=== PATIENT | female | born 1995 | race Caucasian/White ===

== ENCOUNTER → 2019-01-26 | Outpatient (CLI) | payer OTHER, SELFPAY ==
[2019-01-26 16:40] LABS: Chlamydia Trachomatis by PCR Negative (Negative); Neisserai gonorrhoeae by PCR Negative (Negative); Probe Check PASS; Sample Adequacy Control PASS; Specimen Processing Control PASS
[2019-02-01 17:08] LABS: HPV Reflexed? NOT INDICATED
== END | disposition home or self-care (01) ==
LOC: LABSPEC 13:53
PROVIDERS: Referring Provider Obstetrics & Gynecology; Visit Provider Obstetrics & Gynecology
DX: Z12.4 Encounter for screening for malignant neoplasm of cervix (principal); Z11.3 Encounter for screening for infections with a predominantly sexual mode of transmission
CPT/HCPCS: 87491; 87591; 88175; G0145

== ENCOUNTER → 2019-05-16 | Outpatient (CLI) | payer OTHER, SELFPAY ==
[2019-05-16 12:23] LABS: Absolute Lymphocyte Count 1.22 X10^3/uL (0.83-4.51); Absolute Neutrophil Count 6.3 X10^3/uL (2.0-7.7); Basophil# 0.04 X10^3/uL; Basophil% 0.5 % (0-1); Eosinophil# 0.06 X10^3/uL; Eosinophils% 0.7 % (0-5); Hematocrit 37.8 % (37-47); Hemoglobin 12.8 g/dL (12.0-15.0); Lymphocyte # 1.22 X10^3/ul (4.0); Mean Corp Hgb Conc 33.9 g/dL (32-36); Mean Corpuscular Hgb 29.9 pg (27.0-32.0); Mean Corpuscular Volume 88.3 fL (81-99); Mean Platelet Vol. 9.1 fl (6.2-12.0); Monocyte# 0.42 X10^3/uL; Monocyte% 5.2 % (0-10); NRBC Flagged by Analyzer 0 % (0-5); Neutrophil # 6.34 X10^3/uL (2.7-7.7); Platelet Count 229 K/mm3 (150-450); RBC Distribution Width CV 12.5 % (11.6-14.6); RBC Distribution Width SD 40.6 fl (35.1-43.9); Red Blood Count 4.28 M/mm3 (4.2-5.4); White Blood Count 8.1 K/mm3 (4.4-11.0)
[2019-05-16 12:33] LABS: Color, Urine Straw (Yellow); Glucose, Dipstick Normal (Normal); Ketone-Dipstick Negative (Negative); Leukocyte Esterase-Dipstick Negative /ul (Negative); Nitrite-Dipstick Negative (Negative); Occult Blood-Urine Negative /ul (Negative); Protein-Dipstick Negative (Negative); Specific Gravity, Urine 1.005 (1.002-1.030); Urine Bilirubin Dipstick Negative (Negative); Urine Clarity Clear (Clear); Urine Urobilinogen Normal (Normal)
[2019-05-16 12:38] LABS: Thyroid Stim Hormone (TSH) 1.38 uIU/mL (0.358-3.74)
[2019-05-16 13:23] LABS: HIV - WCH Non-Reactive (Nonreactive); Hepatitis B Surface Antigen Non-Reactive (Nonreactive); Hepatitis C Antibody Non-Reactive (Nonreactive); Rubella IgG 149.4 IU/mL
[2019-05-17 13:36] LABS: Prenatal RPR NONREACTIVE (NONREACTIVE)
== END | disposition home or self-care (01) ==
LOC: WOBLAB 10:50
PROVIDERS: Visit Provider Obstetrics & Gynecology
DX: Z34.82 Encounter for supervision of other normal pregnancy, second trimester (principal)
CPT/HCPCS: 36415; 81002; 84443; 85025; 86703; 86762; 86803; 87340

== ENCOUNTER → 2019-07-18 | Outpatient (CLI) | payer OTHER, SELFPAY ==
[2019-07-18 11:09] LABS: Glucose Challenge Gest 1H 50g 131 mg/dL (70-140)
[2019-07-18 11:11] LABS: Mean Corp Hgb Conc 33.3 g/dL (32-36); Mean Corpuscular Hgb 29.7 pg (27.0-32.0); Mean Corpuscular Volume 89.1 fL (81-99); Mean Platelet Vol. 9.5 fl (6.2-12.0); Platelet Count 190 K/mm3 (150-450); RBC Distribution Width CV 12.3 % (11.6-14.6); RBC Distribution Width SD 40.3 fl (35.1-43.9); Red Blood Count 4.04 M/mm3 (4.2-5.4); White Blood Count 8.1 K/mm3 (4.4-11.0)
== END | disposition home or self-care (01) ==
LOC: WOBLAB 09:18
PROVIDERS: Visit Provider Obstetrics & Gynecology
DX: Z34.83 Encounter for supervision of other normal pregnancy, third trimester (principal)
CPT/HCPCS: 36415; 82950; 85027

== ENCOUNTER → 2019-09-06 11:34 | Outpatient (CLI) | payer OTHER, SELFPAY | PROVIDERS: Visit Provider Obstetrics & Gynecology | DX: Z36.85 Encounter for antenatal screening for Streptococcus B (principal) | CPT/HCPCS: 87077; 87081; 87186 ==

== ENCOUNTER 2019-10-03 02:55 | Inpatient (IN) | payer SELFPAY, OTHER ==
[2019-10-03 00:25] VITALS: BMI 37.8
[2019-10-03] MEDS: Lactated Ringers 1,000 ML 50 ML IV (03:15)
[2019-10-03 03:46] LABS: Absolute Lymphocyte Count 1.92 X10^3/uL (0.83-4.51); Basophil# 0.02 X10^3/uL; Basophil% 0.2 % (0-1); Eosinophil# 0.05 X10^3/uL; Eosinophils% 0.4 % (0-5); Hematocrit 35.7 % (37-47); Hemoglobin 12.1 g/dL (12.0-15.0); Lymphocyte # 1.92 X10^3/ul (4.0); Lymphocyte % 14.9 % (19-41); Mean Corp Hgb Conc 33.9 g/dL (32-36); Mean Corpuscular Hgb 29.3 pg (27.0-32.0); Mean Corpuscular Volume 86.4 fL (81-99); Mean Platelet Vol. 10.4 fl (6.2-12.0); Monocyte# 0.82 X10^3/uL; Monocyte% 6.3 % (0-10); NRBC Flagged by Analyzer 0 % (0-5); Neutrophil # 10.04 X10^3/uL (2.7-7.7); Neutrophil % 77.7 % (47-70); Platelet Count 211 K/mm3 (150-450); RBC Distribution Width CV 12.8 % (11.6-14.6); RBC Distribution Width SD 40.2 fl (35.1-43.9); Red Blood Count 4.13 M/mm3 (4.2-5.4); White Blood Count 12.9 K/mm3 (4.4-11.0)
--- NOTE | 2019-10-03 07:11 | PCM.HP.BLA ---
History and Physical Date of Admission: 10/02/19 [facility] [place] H[place]ORY AND PHYSICAL (10/03/2019) Name: IMELDA DUONG OB Physician: MARY Dukedom's Physician: UNDECIDED ...................................................................... : 1995 Age: 24 Address: [address] [place] [address] Phone: H) [phone] (O) [phone] Insurance Carrier: [facility] [id number] Emergency Contact: MATTEO DUONG [phone] ...................................................................... Imelda is a 24yo at 40w3d gestation by L=15w2d US admitted overnight for c/o contractions since 1999; has been unremarkable; she is GBS positive. She declines an epidural at this time, preferring to use nitrous oxide to manage her contractions; spouse is bedside and supportive; she is GBS positive; blood type is A positive. Final JAYME: 09/30/19 By Ultrasound: PARITY: (G-Total Pregnancies P-Fullterm,Premature,Induced AB,Spont AB, Ectopics, Multiple,Living) JAYME CONFIRMATION: By LMP: 01/26/19 Final JAYME: 09/30/19 BLOOD TYPE: AFP: 1 HR PG: GBS: Original Ordering Provider: Nila LEMUS Culture ORGANISM 1: Streptococcus agalactiae (B) Amount Growth Growth Streptococcus agalactiae (B): REACTION Ampicillin $ <=0.25 S Benzylpenicillin NF <=0.06 S Ceftriaxone $ <=0.12 S Clindamycin $$ <=0.25 S Inducable Clindamycin Resistan NEG Linezolid $$$$ <=2 S Vancomycin $ 0.5 S Reference Range: S= Susceptible, I= Intermediate, R= Resistant MICS are expressed in micrograms per mL (NF) indicates non-formulary drug at [facility]. Approval by Infectious Disease Specialist required before non-formulary drugs may be ordered and/or dispensed. Testing performed on Vitek 2 instrument Rublla titer (>10 immune)-- Hepatatis B amber AG-- CULTURES:-- OB PROBLEM LIST: Too late AFP. Declines CF. Enc office Childbirth Class. (Reluctant.) ALLERGIES: No Known Drug Allergies MEDICATIONS: + DHA 28 mg iron-975 mcg-200 mg oral pack daily SOCIAL HISTORY: Smoking - Never Alcohol Use - RARELY not while Diet - balanced Diet, caffeine < 2 drinks per day and Water intake 3-4 large bottles daily. Lifestyle - Exercise - Biking w [employer] bike, Enc to walk 20 min. 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 Place of - [place] Spouse-Sig Other Name - Matteo Spouse-Sig Other Occupation - office correspondent Spouse-Sig Other Phone No - [phone] PRIOR DELIVERY HISTORY DEL DATE GEST LAB WT LB WT OZ TYPE ANES LABOR TX ANTEPARTUM FLOW CHART VISIT GE RTC FU F F LA U U DATE WK MD WKS HT PN HR M SS BP ED WT LA GL D EF ST __ ____ ___ __ __ ___ __ __ __ ___ __ __ __ ___ __ 13 Sep ELB 1 38 V + + 120/84 sl 243 - - 2 75 -3 05 Sep ELB 1 37 V + + 110/90 sl 237 - - Aug ELB 1 37 V + + 112/78 1+ 237 - - Aug ELB 1 37 V + + 122/80 1+ 240 tr - cl TH -3 Aug ELB 1 36 V + + 100/70 sl 236 - - 31 Jul ELB 2 33 - + + 108/72 0 231 - - 17 Aug 16 ELB 2 31 - + + 122/58 sl 230 - - 02 Aug 14 ELB 2 29 - + + 130/78 sl 226 tr - 04 Jul 11 ELB 4 25 - + + 126/84 224 tr - 31 May 05 ELB 4 - - U+ + 90/70 0 211 - - 28 Apr 01 ELB 4 - - U+ O 142/82 204 ANTEPARTUM NOTE(S): Sep 28 2019: feeling well. Cervix check. Sep 20 2019: feeling well. Cervix check. Sep 12 2019: reviewed FM, SROM, and labor Sep 06 2019: mild edema, GBS today Aug 31 2019: feeling well. Aug 16 2019: feeling well. Aug 02 2019: doing well Jul 18 2019: GCT today Jun 20 2019: No complaints May 16 2019: feeling well. Apr 13 2019: DId NOT miscarry COMPREHENSIVE ANTEPARTUM NOTE(S): Sep 12 2019: Declines having Tdap or Influenza vaccines. Reviewed edema in , PIH sx, labor, SROM. LMT Sep 12 2019: Discussed GBS test positive and tx in labor. Reviewed BOTTLE FEEDING Does NOT want to nurse. Also discussed options for pain relief in labor. Planning no epidural at this time. EB Sep 11 2019: GBS sensitive to all abx tested. EB Sep 11 2019: H taken to OB. tkg Sep 09 2019: GBS positive EB Sep 06 2019: Imelda is here for visit. She has mild edema. She is otherwise doing well. Reviewed FM, SROM, and labor. GBS today and LARC consent signed. LMT Jul 19 2019: Hgb 12 g/dl. Glucola 131. WNL. EB Jun 20 2019: Reviewed NOB labs. Doing well. +FM. Glucola given with instructions. reviewed PTL. RTO in 4 wk for glucola CBC. EB May 16 2019: Imelda is here for NOB nurse visit with JAYME 09-30-19 planning a vag del at [facility], unsure of epidural, feeding method or ped care post disch. Leaning towards no epidural, formula feeding and looking for a family practice doctor. Advantages of a winter baby discussed and/or combining with bottle feeding. 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 He is a office correspondent. The pg was unplanned but they are fine with it. She has NKA to meds, food, latex or the environment. Her diet is balanced with minimal caffeine and 3-4 large bottles of water daily. She is a lifetime non smoker, rarely drinks alcohol and denies street drug use. She exercises daily on her battery operated bike or walks. She's active with her home. Enc to walk 20 min daily. Genetic Screening form completed noting no family issues. She is too late for AFP and declines CF testing. Warning signs in pg discussed as well as otc meds ok to take. lifting restriction of 20-25#, wearing seatbelt ALWAYS and low on abdomen. reaching the office after hours and the importance of protein in her diet. US done today and routine labs drawn. She's had chickenpox and they have no cats. She is aware of litter box issues. She has a copy of What to Expect and has been reading it. Office Childbirth and Classes discussed and enc. She sounds very reluctant about even Childbirth Class. Enc to call w any concerns. Visit took approx 50 min. Nico CAMACHO May 16 2019: A positive. RI. Hgb 12.8 g/dl. EB Apr 16 2019: Here for NOB exam. She had pap and cultures done prior visit at NOB then. She had called in to net front end developer and informed them that she had an SAB after bleeding on the day of her last NOB appt. (pap and cultures done then) SONO done today: VIABLE IUP and she did NOT miscarry. CRL consistent with dates by her prior stated LMP. She likely had some bleeding ONLY due to pap and cultures at last visit. Informed of this. Offered to have NOB labs done today, but die tripper schedule busy and will RTO for this as well as NOB nurse visit , 20 wk sono in 4 wks. EB Apr 13 2019: Imelda presents here today for Missed Menses appointment. 23 y.o. G 2 AB 1 P 0 non-smoker with no menses since Miscarriage on 01-26-19. UPT is positive today in our Office. History of normal pap screening in 01/2019. Admits she already has the Educational Materials and the What to expect book, and very thankful for same. Denies spotting/bleeding thus far in . Reports she has daily nausea and fatigue with some days worse then others. Currently taking an OTC Vitamin without problems. Medication and Allergy lists up-dated. SHIRA Feb 02 2019: Pap WNL. EB Jan 27 2019: GC and chlamydia NEG EB Jan 26 2019: Here for confirmation of Has had some spotting. EB Jan 26 2019: Imelda is being seen for missed menses. Pt is new to facility and this is first . UPT is faintly positive in office. LMP 12-24-18. Pt is about 4 weeks and 5 days. JAYME 09-30-19. Pt states she did have some spotting 01-24-19 that went away. Pt has never had a pap. Pap and cultures due today. Pt takes Momma bear vitamins and has no allergies. information gone over and reviewed with pt. AM REVIEW OF SYSTEMS: GENERAL - Denies fever, or chills SKIN - Denies rash, new skin lesions, or change in moles EYES - Denies blurred vision, or change in visual acuity EARS - Denies ear pain, or difficulty hearing NOSE - Denies nasal congestion, discharge, or bleeding MOUTH - Denies sore throat, or difficulty swallowing NECK - Denies pain or swelling RESPIRATORY - Denies shortness of breath, cough, wheezing CARDIOVASCULAR - Denies palpitations, chest pain, orthopnea, PND, peripheral edema, syncope or claudication GASTROINTESTINAL - Denies nausea, vomiting, diarrhea, constipation, Denies abdominal pain, melena and or bright red blood GENITOURINARY - Denies dysuria, frequency of urination, urgency, or hesitancy MUSCULOSKELETAL - Denies joint or muscle pain, or back pain NEUROLOGICAL - Denies localized numbness, weakness, or tingling PSYCHIATRIC - Denies depression, anxiety, substance abuse or suicide attempts ENDOCRINE - Denies heat or cold intolerance, weight loss or gain, increasing thirst HEMATO-IMMUNOLOGIC - Denies easy bruising, bleeding, oral ulcerations or recurrent infections GENETICS SCREENING: Age 35+ years: No Thalassemia: No Neural Tube Defect: No Down Syndrome: No NELDA-SACHS: No Sickle Cell Disease: No Hemophilia: No Musc. Dystrophy: No Cystic Fibrosis: No-declines screening Kenedy Chorea: No Mental Retardation: No Fragile X: No Other genetic: No Other defects: No SABs/still births: No Drugs since LMP: No INFECTION HISTORY: High risk AIDS: No High risk Hepatitis: No Exposed to TB: No Exposed to Herpes: No Rash/viral illness since LMP: No History of STD: No MENSTRUAL HISTORY: *Menses Amount/Duration: normal amount* PAST SUMMARY: PARITY: 1. Total Pregnancies............ 1 2. Full Term Pregnancies........ 0 3. Premature.................... 0 4. Abortions - Induced.......... 0 5. Abortions - Spontaneous...... 0 6. Ectopics..................... 0 7. Multiple Births.............. 0 8. Living Children.............. 0 Labs for : IMELDA DUONG since 01/03/2019 ORDER DATEIN DESCRIPTION VALUE UNITS RANGE A+ COMMENT CULTURE, GROUP B STREPTOCOCCUS 09/06/19 NOTE Original Ordering Provider: Nila Her ALLAN Culture ORGANISM 1: Streptococcus agalactiae (B) Amount Growth Growth Streptococcus agalactiae (B): REACTION Ampicillin $ <=0.25 S Benzylpenicillin NF <=0.06 S Ceftriaxone $ <=0.12 S Clindamycin $$ <=0.25 S Inducable Clindamycin Resistan NEG Linezolid $$$$ <=2 S Vancomycin $ 0.5 S Reference Range: S= Susceptible, I= Intermediate, R= Resistant MICS are expressed in micrograms per mL (NF) indicates non-formulary drug at [facility]. Approval by Infectious Disease Specialist required before non-formulary drugs may be ordered and/or dispensed. Testing performed on Karma Platformek 2 instrument Reviewed by NILA Reviewed by NILA Reviewed by NILA CBC-COMPLETE BLOOD CNT NO DIFF 07/18/19 NOTE Original Ordering Provider: Nila Her WBC 8.1 K/mm3 4.4-11.0 RBC 4.04 M/mm3 4.2-5.4 L HGB 12.0 g/dL 12.0-15.0 HCT 36.0 % 37-47 L MCV 89.1 fL 81-99 MCH 29.7 pg 27.0-32.0 MCHC 33.3 g/dL 32-36 RDW CV 12.3 % 11.6-14.6 RDW SD 40.3 fl 35.1-43.9 PLT 190 K/mm3 150-450 MPV 9.5 fl 6.2-12.0 Reviewed by NILA GLUCOSE CHALLENGE GEST 1H 50G 07/18/19 NOTE Original Ordering Provider: Nila Her GLU GEST 50G 1H 131 mg/dL 70-140 Reviewed by NILA RPR 05/16/19 NOTE Original Ordering Provider: Nila Her RPR NONREACTIVE NONREACTIVE Reviewed by NILA T AND S-NO CHARGE W/PNP 05/16/19 Reason for Type AND Screen/Red Cells: Surgery? N [facility]~[address] [place], [address]~ BLOOD TYPE GEL A POSITIVE N AB SCREEN GEL NEGATIVE N Reviewed by NILA HEPATITIS C ANTIBODY 05/16/19 NOTE Original Ordering Provider: Nila Her HEPATITIS C AB Non-Reactive Nonreactive Non Reactive: < 0.8 Equivocal: >/= 0.8 to < 1.0 Reactive: >/= 1.0 The CDC recommends that a reactive/equivocal HCV antibody result be followed up by the HCV Nucleic Acid Amplification test ([id number]) Reviewed by NILA HEPATITIS B SURFACE ANTIGEN 05/16/19 NOTE Original Ordering Provider: Nila Her HEPB SURFACE AG Non-Reactive Nonreactive Reviewed by NILA HIV - [facility] 05/16/19 NOTE Original Ordering Provider: Nila Her HIV - [facility] Non-Reactive Nonreactive Reviewed by NILA RUBELLA IGG 05/16/19 NOTE Original Ordering Provider: Nila Her RUBELLA IGG 149.4 IU/mL Antibody results Interpretation of Immune Status < 5 IU/ml Presumed Non-immune 5 - < 10 IU/ml Equivocal > or = 10 IU/ml Presumed Immune Reviewed by NILA URINALYSIS, ROUTINE (DIPSTICK) 05/16/19 NOTE Original Ordering Provider: Nila Her COLOR Straw Yellow CLARITY Clear Clear GLUCOSE, UR Normal mg/dl Normal BILIRUBIN URINE Negative mg/dL Negative KETONE UR Negative mg/dl Negative SP.GR. DIPSTX 1.005 1.002-1.030 PH UR 7.0 5.0 - 8.0 PROT DIPSTX Negative mg/dl Negative UROBILI Normal mg/dl Normal NITRITE UR Negative Negative OCCULT BLOOD-UR Negative /ul Negative LEUK ESTERASE Negative /ul Negative Reviewed by NILA THYROID STIM HORMONE (TSH) 05/16/19 NOTE Original Ordering Provider: Nila Her TSH 1.38 uIU/mL 0.358-3.74 Reviewed by NILA CBC W/DIFF, AUTOMATED 05/16/19 NOTE Original Ordering Provider: Nila Her WBC 8.1 K/mm3 4.4-11.0 RBC 4.28 M/mm3 4.2-5.4 HGB 12.8 g/dL 12.0-15.0 HCT 37.8 % 37-47 MCV 88.3 fL 81-99 MCH 29.9 pg 27.0-32.0 MCHC 33.9 g/dL 32-36 RDW CV 12.5 % 11.6-14.6 RDW SD 40.6 fl 35.1-43.9 PLT 229 K/mm3 150-450 MPV 9.1 fl 6.2-12.0 NEUT% 78.0 % 47-70 H LY% 15.0 % 19-41 L MONO% 5.2 % 0-10 EO% 0.7 % 0-5 BASO% 0.5 % 0-1 IM GRAN % 0.600 % 0.0-0.9 IG% - Immature Granulocytes (promyelocytes, myelocytes and metamyelocytes) > 1% indicates that a LEFT SHIFT is Present. ABSOLUTE NEUT 6.3 X10 3/uL 2.0-7.7 ABSOLUTE LYMPH 1.22 X10 3/uL 0.83-4.51 NRBC, FLAGGED 0 % 0-5 Reviewed by NILA PAP I-G W/RFX HRHPV 01/26/19 NOTE Original Ordering Provider: Nila Her DIAGN . NEGATIVE FOR INTRAEPITHELIAL LESION OR MALIGNANCY. THIS SPECIMEN WAS RESCREENED PART OF OUR MORTGAGE ANALYST PROGRAM. ADEQ . Satisfactory for evaluation. Endocervical and/or squamous metaplastic cells (endocervical component) are present. PERFORM . Kirsty Guiod, Handyperson (ASCP) QC REV . Yaa Max, Supervisory Handyperson (ASCP) SIGN . Ada Cantu, Supervisory Handyperson (ASCP) TEST METHOD . This liquid based ThinPrep(R) pap test was screened with the use of an image guided system. COMM . . PAPSMR . The Pap smear is a screening test designed to aid in the detection of premalignant and malignant conditions of the uterine cervix. It is not a diagnostic procedure and should not be used as the sole means of detecting cervical cancer. Both false-positive and false-negative reports do occur. HPV RFLX . The HPV DNA reflex criteria were not met with this specimen result therefore, no HPV testing was performed. Performed at: [address] [id number] Lining Cutter: Sylvia Cesar MD, Phone: [phone] Reviewed by NILA FREEMAN/SAULO [facility] BY PCR 01/26/19 NOTE Original Ordering Provider: Nila [facility] PCR Negative Negative NG BY PCR Negative Negative Reviewed by NILA PROVIDER SIGNATURE ( REQUIRED) PHYSICAL EXAMINATION General Appearence: 24 yo female in no acute distress Vital Signs: AF, VSS Heart: RRR without rubs or gallops Lungs: CTA x 2 Breasts: deferred Abdomen: gravid Pelvis: Cervix: 4/75/-2 at 0533 per RN Presentation: cephalic Fetus: Size: AGA Movement: present Heart tones: 135 baseline, moderate variability, with accels, occasional early decels UCs: Q 2-4 Impression: 24yo at 40w3d gestation by L=15w2d US Early labor A positive GBS positive Cat 1 FHTs Plan: Admitted for labor GBS prophylaxis Expectant management Anticipate vaginal delivery
--- NOTE | 2019-10-03 08:41 | PCM.PN.BLA ---
Progress Note This is a late entry for 10/03/2019 0824 S: Coping well with, breathing through contractions, using nitrous oxide to manage contractions; spouse bedside and supportive; OK w/opening BOW to augment labor O: AVSS FHTs: UCs: Cervix: 8/95/0 BBOW GBS prophylaxis dose # 2 complete Assessment: 24yo at 40w3d gestation by L=15w2d US Active labor A positive GBS positive Cat 2 FHTs Plan: Risks, benefits of AROM discussed with pt and spouse; request AROM for small amount clear fluid Favian Ontiveros CNM updated and enroute Expectant management Anticipate vaginal delivery
[2019-10-03] MEDS: Oxytocin 30 units/NS 500 ml 30 UNITS/500 ML IV.SOLN 334 UNITS IV (10:34)
--- NOTE | 2019-10-03 11:10 | PCM.OPRPT ---
Vaginal Delivery Amniotic Membrane Rupture Type: Artificial Amniotic Fluid Description: Clear Final JAYME: 09/30/19 Final JAYME Source: US <20 weeks Gestational age: 40 Weeks and 3 Days Date of Procedure: 10/03/19 Pre-Operative Diagnosis: Labor Post-Operative Diagnosis: S/P NVSD Surgery/ Procedure Performed: Spontaneous Vaginal Delivery Type of Anesthesia: Local with 1% lidocaine Description of Procedure: of a reece viable male . Head delivered OA, restituted to ANTONINO. Loose nuchal x1 retracted before delivery of shoulders. Shoulders delivered with mother in [place] and downward traction by CNM. OP and nares bulb suctioned after delivery. Meconium followed infant. to maternal abdomen with cry after gentle stimulation. Delayed cord clamping for 30 sec then cord clamped times two and cut by CNM. Male Apgars 8/9 Placenta delivered by spont expulsion, expression. normal appearing and intact with trailing membranes. 3V cord PP exam : second degree vaginal and perineal lacerations repaired under local lidocaine 1% with 3.[address] Her and CNM EBL 200 cc Pt and tolerated delivery well to recovery, stable condition Presentation: Vertex, ANTONINO Placental Delivery Description: Spontaneous Placenta Disposition: [facility] Cord Vessel Description: 3 Vessels Cord Entanglement: Around neck x 1, loose Estimated Blood Loss: 200 A gender: Male (1 minute): 8 (5 minute): 9 Episiotomy Description: None Laceration: Perineal Extension/lac, Vaginal Extension/lac, 2nd degree Medications given after delivery: IV Pitocin
--- NOTE | 2019-10-03 11:19 | DCINST_ITS ---
Discharge Diet: No Restrictions Discharge Activity: Return to Normal Activity, May not drive while taking narcotic pain medications., May Shower May resume sexual activity in: 4-6 weeks Additional Activity Instructions:: Nothing in the vagina for 4-6 weeks. You may return to work/school in 6 weeks. Call your doctor if your incision/area has: Continuous Slow Oozing, Sudden Increased Bleeding, Increased Pain/ Swelling, Increased Redness, Foul Smelling Discharge Call your doctor if you observe: Fever of 101 or Higher, Coldness, Increased Pain, Numbness or Tingling, Change in Color, Inability to urinate, Inability to have a bowel movement, Using more than one pad per hour, Shortness of breath, Dizziness, Fainting spells, Swelling in the ankles, Chest pain, Prolonged hiccoughing, Increased palpitations (irregular heartbeat), Calf discomfort, Uncontrolled pain Additional Instructions: If you experience any of the following, contact your healthcare provider. * Bleeding that soaks a pad every hour for 2 hours * Unrelieved incision or abdominal pain * Swelling, redness, discharge or bleeding from your incision or episiotomy site * Your incision begins to separate * Problems urinating (including inability to urinate or burning while urinating). * Visual changes * Severe headache * Flu-like symptoms * Pain or redness in one of both of your breasts * Pain, warmth, tenderness or swelling in your legs, especially the calf area * Frequent nausea and vomiting * Symptoms of depression or anxiety If you experience any of the following, call 911 or go to the nearest Emergency Room. * Chest pain * Problems breathing * Seizure activity * Partial or complete paralysis of a body part, slurred speech, weakness or drooping of the face, or a sudden inability to walk or hold your balance Allergies/Adverse Reactions: Allergies No Known Allergies Allergy (Verified 10/03/19 00:27) Medications to take at Discharge Docosahexanoic Acid [ Dha] 200 mg PO DAILY 10/03/19 Please Follow Up With: Heather Ontiveros CNM When: Call to make an appointment with your doctor in 6 weeks. If feelings of blues/sadness/depression please call for immediate appointment. Primary Care Physician: Care Physician,No Primary [Primary Care Provider] - Test Results: Test results from this visit will be discussed in further detail at your follow- up appointment, if applicable. Proposed Discharge Date: 10/05/19
[2019-10-03] MEDS: 0.9% Saline Lock 10 ML Syringe IV (13:35)
[2019-10-03 16:06] VITALS: BP 120/75; PULSE 93; RESP 16; TEMP 36.8; O2SAT 97
[2019-10-03 20:30] VITALS: BP 127/66; PULSE 91; RESP 20; TEMP 36.7; O2SAT 97
[2019-10-03] MEDS: Acetaminophen 500 MG Tablet 1000 MG PO (21:03)
[2019-10-04 00:45] VITALS: BP 129/56; PULSE 72; RESP 20; TEMP 36.2; O2SAT 96
[2019-10-04 05:00] VITALS: BP 106/86; PULSE 74; RESP 18; TEMP 36.3
--- NOTE | 2019-10-04 08:57 | PCM.PN.OB ---
Subjective: Feeling well, mild cramping. Bottle feeding male . States her and are very happy with everything. Objective: VSS. Fundus u/1. Lochia rubra, no clots. Bowel sounds present. Denies flatus yet. - Physical Exam Vitals/I&O's: Vital Signs Temp Pulse Resp BP Pulse Ox 97.3 F L 74 18 106/86 H 96 10/04/19 05:00 10/04/19 05:00 10/04/19 05:00 10/04/19 05:00 10/04/19 00:45 Oxygen Delivery Method Room Air Weight: 109.406 kg Body Mass Index (BMI) 37.8 Intake and Output for Last 24 Hours 10/02/19 10/03/19 10/04/19 23:59 23:59 23:59 Intake Total 1295.83 / 1295.83 Output Total 1350 / 1350 Balance -54.17 / -54.17 General: Alert, Oriented x3, Cooperative HEENT: Atraumatic, PERRLA, EOMI, Normocephalic Neck: Supple, No JVD, Negative Carotid Bruits Lungs: Clear to auscultation, Normal air movement Cardiovascular: Regular rate, No murmurs Abdomen: Bowel Sounds Present, Soft, Non Tender Extremities: No edema, Capillary Refill Less than 3 Seconds Skin: No rashes, No breakdown, - - vaginal repair, well approximated no redness or edema Musculoskeletal: No Tenderness to Palpation of Joints or Extremities Neurological: Cranial nerves II-XII grossly intact Psych/Mental Status: Normal Affect, Appropriate Current Medications Acetaminophen (Tylenol) 1,000 mg PO Q8H PRN PRN PRN Reason: Pain Score 1-3/10 Last Admin: 10/03/19 21:03 Dose: 1,000 mg Documented by: Bisacodyl (Dulcolax) 10 mg RECTAL UD PRN PRN Reason: If no BM Dibucaine (Dibucaine) 1 applic TOPICAL TID PRN PRN; Protocol PRN Reason: Discomfort Hydrocortisone (Hytone) 1 applic TOPICAL TID PRN PRN; Protocol PRN Reason: Discomfort Ibuprofen (Motrin) 600 mg PO Q6H PRN PRN PRN Reason: Pain Score 1-3/10 Methylergonovine Maleate (Methergine) 0.2 mg IM X1 PRN PRN Reason: Excess bleeding/uterine atony Ondansetron HCl (Zofran) 4 mg IV Q4H PRN PRN PRN Reason: Nausea Oxycodone HCl (Oxyir) 5 - 10 mg PO Q4H PRN PRN PRN Reason: Pain Score 4-10/10 Senna/Docusate Sodium (Senokot-S, Nina-Colace) 1 - 2 tablet PO DAILY PRN PRN PRN Reason: Constipation Simethicone (Mylicon) 80 mg PO PCHS PRN PRN Reason: Indigestion/Stomach pain Sodium Chloride () 5 - 15 ml IV UD PRN PRN Reason: SALINE FLUSH Last Admin: 10/03/19 13:35 Dose: 10 ml Documented by: Zolpidem Tartrate (Ambien (Generic)) 5 mg PO QHS PRN PRN PRN Reason: Insomnia Medical Necessity - Tobacco Use Smoking Status: Never smoker Assessment/Plan A: Post-vaginal delivery day #1 Second degree vaginal repair Male infant 9#3oz Normal lochia-rubra Fundus u/1 P: Continue with care including Tylenol and Motrin as needed To discharge tomorrow
[2019-10-04 09:00] VITALS: BP 124/79; PULSE 83; RESP 16; TEMP 36.6
[2019-10-04 14:00] VITALS: BP 137/77; PULSE 83; RESP 18; TEMP 36.4
[2019-10-04] MEDS: Acetaminophen 500 MG Tablet 1000 MG PO (14:32)
[2019-10-04 20:22] VITALS: BP 141/77; PULSE 78; RESP 16; TEMP 37.1; O2SAT 99
[2019-10-04] MEDS: Ibuprofen 600 MG Tablet PO (20:43)
[2019-10-04 21:00] VITALS: BP 145/85
[2019-10-05 01:32] VITALS: BP 123/70; PULSE 63; RESP 16; TEMP 36.2; O2SAT 98
--- NOTE | 2019-10-05 08:47 | PCM.DC.SUM ---
Discharge Date and Diagnosis Date of Admission: 10/02/19 Date of Discharge: 10/05/19 Hospital Course and Treatment Operations: None Procedures: None Summary of Care Provided: The patient is a 24 year old F [] Subjective: Feeling well, slept good last night. Pain is minimal and Motrin is helping. Wants to go home today at 1100. Objective: BPs have been elevated intermittently over the last 24 hours. 120s-140s/70s-80s. Denies headache, blurred vision, RUQ pain. Clonus negative, +1 DTR, +1 bilateral pedal edema. Educated on importance of keeping legs elevated and danger signs of pre-e. Fundus u/2, firm, midline. Scant lochia rubra. Denies feelings of sadness. Infant male is bottle feeding well and is slightly jaundice, but is getting recheck tomorrow. - Physical Exam Vitals/I&O's: Vital Signs Temp Pulse Resp BP Pulse Ox 97.1 F L 63 16 123/70 H 98 10/05/19 01:32 10/05/19 01:32 10/05/19 01:32 10/05/19 01:32 10/05/19 01:32 Oxygen Delivery Method Room Air Weight: 109.406 kg Body Mass Index (BMI) 37.8 Intake and Output for Last 24 Hours 10/03/19 10/04/19 10/05/19 23:59 23:59 23:59 Intake Total 1295.83 / 1295.83 Output Total 1350 / 1350 Balance -54.17 / -54.17 General: Alert, Oriented x3, Cooperative HEENT: Atraumatic, PERRLA, EOMI, Normocephalic Neck: Supple, No JVD, Negative Carotid Bruits Lungs: Clear to auscultation, Normal air movement Cardiovascular: Regular rate, No murmurs Abdomen: Bowel Sounds Present, Soft, Non Tender, Passing Flatus - Denies BM yet Extremities: Capillary Refill Less than 3 Seconds, Edema - +1 bilateral pedal edema Skin: No rashes, No breakdown Musculoskeletal: No Tenderness to Palpation of Joints or Extremities Neurological: Cranial nerves II-XII grossly intact Psych/Mental Status: Normal Affect, Appropriate Current Medications Acetaminophen (Tylenol) 1,000 mg PO Q8H PRN PRN PRN Reason: Pain Score 1-3/10 Last Admin: 10/04/19 14:32 Dose: 1,000 mg Documented by: Bisacodyl (Dulcolax) 10 mg RECTAL UD PRN PRN Reason: If no BM Dibucaine (Dibucaine) 1 applic TOPICAL TID PRN PRN; Protocol PRN Reason: Discomfort Hydrocortisone (Hytone) 1 applic TOPICAL TID PRN PRN; Protocol PRN Reason: Discomfort Ibuprofen (Motrin) 600 mg PO Q6H PRN PRN PRN Reason: Pain Score 1-310 Last Admin: 10/04/19 20:43 Dose: 600 mg Documented by: Methylergonovine Maleate (Methergine) 0.2 mg IM X1 PRN PRN Reason: Excess bleeding/uterine atony Ondansetron HCl (Zofran) 4 mg IV Q4H PRN PRN PRN Reason: Nausea Oxycodone HCl (Oxyir) 5 - 10 mg PO Q4H PRN PRN PRN Reason: Pain Score 4-10/10 Senna/Docusate Sodium (Senokot-S, Nina-Colace) 1 - 2 tablet PO DAILY PRN PRN PRN Reason: Constipation Simethicone (Mylicon) 80 mg PO PCHS PRN PRN Reason: Indigestion/Stomach pain Sodium Chloride () 5 - 15 ml IV UD PRN PRN Reason: SALINE FLUSH Last Admin: 10/03/19 13:35 Dose: 10 ml Documented by: Zolpidem Tartrate (Ambien (Generic)) 5 mg PO QHS PRN PRN PRN Reason: Insomnia Discharge Diet: No Restrictions Discharge Activity: Return to Normal Activity, May not drive while taking narcotic pain medications., May Shower May resume sexual activity in: 4-6 weeks Additional Activity Instructions:: Nothing in the vagina for 4-6 weeks. You may return to work/school in 6 weeks. Call your doctor if your incision/area has: Continuous Slow Oozing, Sudden Increased Bleeding, Increased Pain/ Swelling, Increased Redness, Foul Smelling Discharge Call your doctor if you observe: Fever of 101 or Higher, Coldness, Increased Pain, Numbness or Tingling, Change in Color, Inability to urinate, Inability to have a bowel movement, Using more than one pad per hour, Shortness of breath, Dizziness, Fainting spells, Swelling in the ankles, Chest pain, Prolonged hiccoughing, Increased palpitations (irregular heartbeat), Calf discomfort, Uncontrolled pain Home Medications: Medications to take at Discharge Docosahexanoic Acid [ Dha] 200 mg PO DAILY 10/03/19 Primary Care Physician: Care Physician,No Primary [Primary Care Provider] - Please Follow Up With: Heather Ontiveros CNM When: In 2 weeks for PP visit with BP check. Disposition: Home Patient Condition:: Good Medical Necessity - Tobacco Use Smoking Status: Never smoker Meaningful Use Info Meaningful Use Diagnoses (Choose all that apply): None applicable
[2019-10-05 08:55] VITALS: BP 122/60; PULSE 80; RESP 16; TEMP 36.4
[2019-10-05 11:48] VITALS: BP 134/85
== END 2019-10-05 11:55 | disposition home or self-care (01) | DRG 807 ==
LOC: WPOUT 02:57 → WP 02:57
PROVIDERS: Advanced Practice Midwife; Admitting Provider Obstetrics & Gynecology; Visit Provider Obstetrics & Gynecology
DX: O99.824 Streptococcus B carrier state complicating childbirth (principal); O69.81X0 Labor and delivery complicated by cord around neck, without compression, not applicable or unspecified; O70.1 Second degree perineal laceration during delivery; Z3A.40 40 weeks gestation of pregnancy; Z37.0 Single live birth
CPT/HCPCS: 59025; 59050; 85025; 86850; 86900; 86901; 99218; J7120; A4216; G0378